=== PATIENT | female | born 1995 | race Two or more races ===

== ENCOUNTER 2017-09-07 04:41 | Emergency (ER) | payer MEDICAID, OTHER ==
[~2017-09-07] VITALS: Ht 165.1 cm; Wt 79.4 kg
[~2017-09-07 04:41] MED LIST: AMOXICILLIN500 MG ORAL; CLINDAMYCIN HC150 MG ORAL; IBUPROFEN600 MG ORAL; NKM; ZITHROMAX250 MG ORAL
[2017-09-07] MEDS ORDERED: AMOXICILLIN500 MG ORAL (04:56)
[2017-09-07] MEDS ORDERED: TYLENOL EXTRA500 MG ORAL (04:56)
[2017-09-07 05:00] VITALS: BP 122/72
--- NOTE | 2017-09-07 05:07 | Emergency Room Report ---
History of Present Illness General Chief Complaint: Sore Throat Source: Patient Present Illness HPI 22-year-old female presents ED complaining of throat pain x1 day. Patient states she has history of tonsillitis. Denies fevers or chills. Denies cough. Pain is throbbing, 8/10, nonradiating. Denies sick contacts or recent travel. No other aggravating relieving factors. Denies any others as if symptoms Allergies: Coded Allergies: No Known Allergies (Unverified , 04/14/13) Patient History Past Medical History: asthma Past Surgical History: none Pertinent Family History: none Social History: Denies: smoking, alcohol use, drug use Last Menstrual Period: 08/31/17 Now: No Immunizations: UTD Reviewed Nursing Documentation: PMH: Agreed, PSxH: Agreed Nursing Documentation-PMH Past Medical History: No History, Except For Hx Cardiac Problems: No - Tonsillitis Hx Asthma: Yes Review of Systems All Other Systems: negative except mentioned in HPI Physical Exam Vital Signs Date Time Temp Pulse Resp B/P (MAP) Pulse Ox O2 Delivery O2 Flow Rate FiO2 09/07/17 04:44 98 17 120/76 97 Room Air Sp02 EP Interpretation: reviewed, normal General Appearance: no apparent distress, alert, GCS 15, non-toxic Head: normocephalic, atraumatic Eyes: bilateral eye normal inspection, bilateral eye PERRL ENT: hearing grossly normal, no angioedema, normal voice, TMs + canals normal, pharyngeal erythema Neck: full range of motion, supple/symm/no masses Respiratory: chest non-tender, lungs clear, normal breath sounds, speaking full sentences Cardiovascular #1: regular rate, rhythm, no edema Cardiovascular #2: 2+ carotid (R), 2+ carotid (L), 2+ radial (R), 2+ radial (L) , 2+ dorsalis pedis (R), 2+ dorsalis pedis (L) Gastrointestinal: normal bowel sounds, non tender, soft, non-distended, no guarding, no rebound Rectal: deferred Genitourinary: normal inspection, no CVA tenderness Musculoskeletal: back normal, gait/station normal, normal range of motion, non- tender Neurologic: alert, oriented x3, responsive, motor strength/tone normal, sensory intact, speech normal Psychiatric: judgement/insight normal, memory normal, mood/affect normal, no suicidal/homicidal ideation Reflexes: 3+ bicep (R), 3+ bicep (L), 3+ tricep (R), 3+ tricep (L), 3+ knee (R) , 3+ knee (L) Skin: normal color, no rash, warm/dry, well hydrated Lymphatic: no adenopathy Medical Decision Making Diagnostic Impression: Primary Impression: Tonsillitis with exudate ER Course Hospital Course 22-year-old female presents to ED complaining of sore throat Differential diagnoses include: URI, pharyngitis, otitis media Clinical course Patient placed on stretcher. After initial history, physical exam reveals a female in no acute distress. Bilateral TM unremarkable. There is pharyngeal erythema w/o tonsillar exudates. No lymphadenopathy. Clinical findings consistent with tonsillitis Diagnosis - tonsillitis Stable and discharged home with prescriptions for Tylenol, amoxicillin. Instructed to followup with PMD. return to ED if symptoms recur or worsen Last Vital Signs Date Time Temp Pulse Resp B/P (MAP) Pulse Ox O2 Delivery O2 Flow Rate FiO2 09/07/17 04:44 98 17 120/76 97 Room Air Status: improved Disposition: HOME, SELF-CARE Condition: Stable Scripts Acetaminophen* (TYLENOL EXTRA STRENGTH*) 500 Mg Tablet 500 MG ORAL Q6H Y for Mild Pain/Temp > 100.5, #30 TAB 0 Refills Prov: LALI WEBB M.D. 09/07/17 Amoxicillin* (AMOXIL*) 500 Mg Capsule 500 MG ORAL THREE TIMES A DAY, #21 CAP Prov: LALI WEBB M.D. 09/07/17 Patient Instructions: Tonsillitis LALI WEBB M.D. Sep 07, 2017 05:07
== END 2017-09-07 05:00 | disposition home or self-care (01) ==
LOC: EMR 04:54
DX: J03.90 Acute tonsillitis, unspecified (principal); J45.909 Unspecified asthma, uncomplicated
CPT/HCPCS: 99283

== ENCOUNTER 2017-11-08 15:26 | Emergency (ER) | payer MEDICAID ==
[~2017-11-08] VITALS: Ht 165.1 cm; Wt 80.3 kg
[~2017-11-08 15:26] MED LIST changes: +TYLENOL EXTRA500 MG ORAL
--- NOTE | 2017-11-08 16:13 | Emergency Room Report ---
History of Present Illness General Chief Complaint: Diarrhea Present Illness HPI 22-year-old female presents to ER complaining of diarrhea and vomiting times x1 day. Patient reports vomiting only occurred once yesterday; denies blood in vomit; reports being able to eat since that time. Patient states she is not "worried about the vomiting". Patient reports last episode of diarrhea this morning; denies blood in stool. Patient reports diarrhea is watery; states she has been drinking lots of fluids past few days. Patient complains of burping intermittently with certain foods. Denies recent travel. Reports sick contacts. Patient denies hx of GERD. Patient reports currently being on menstrual period; states is normal for her. Patient complains of generalized abdominal discomfort. Patient denies fever, chest pain, SOB, FOLEY, dysuria, hematuria. Allergies: Coded Allergies: No Known Allergies (Unverified , 04/14/13) Patient History Past Medical History: see triage record Last Menstrual Period: 11/08/17 Now: No - on cycle now : 1 Para: 1 Immunizations: UTD Reviewed Nursing Documentation: PMH: Agreed, PSxH: Agreed Nursing Documentation-PMH Hx Cardiac Problems: No - Tonsillitis Hx Asthma: Yes Review of Systems All Other Systems: negative except mentioned in HPI Physical Exam Vital Signs Date Time Temp Pulse Resp B/P (MAP) Pulse Ox O2 Delivery O2 Flow Rate FiO2 11/08/17 15:44 97.7 110 20 113/79 97 Room Air Sp02 EP Interpretation: reviewed, normal General Appearance: no apparent distress, alert, GCS 15, non-toxic Head: normocephalic, atraumatic Eyes: bilateral eye normal inspection, bilateral eye PERRL ENT: hearing grossly normal, normal pharynx, no angioedema, normal voice, TMs + canals normal, uvula midline, moist mucus membranes, pharyngeal erythema Neck: full range of motion, supple/symm/no masses Respiratory: chest non-tender, lungs clear, normal breath sounds, speaking full sentences Cardiovascular #1: regular rate, rhythm, no edema Gastrointestinal: normal bowel sounds, non tender, soft, non-distended, no guarding, no rebound, other - negative TTP at McBurney's point, negative rovsing , negative Cortez sign Genitourinary: no CVA tenderness Musculoskeletal: back normal, digits/nails normal, gait/station normal, normal range of motion, non-tender Neurologic: alert, oriented x3, responsive, motor strength/tone normal, sensory intact, speech normal Psychiatric: mood/affect normal Skin: normal color, no rash, warm/dry, well hydrated Lymphatic: no adenopathy Medical Decision Making PA Attestation Dr. Garcia is my supervising Physician whom patient management has been discussed with. Diagnostic Impression: Primary Impression: Vomiting and diarrhea ER Course Pt. presents to the ED c/o vomiting and diarrhea. Ddx considered but are not limited to viral syndrome, gastritis, enteritis. Vital signs: are WNL, pt. is afebrile at discharge. ORDERS: none required at this time, the diagnosis is clinical ED INTERVENTIONS: None required at this time. Patient informed of likely viral cause of symptoms. DISCHARGE: Rx provided for Dicyclomine for diarrhea symptoms. Patient instructed on BRAT diet. Patient instructed to remain hydrated, drink plenty of fluids. Patient questions asked and answered. Patient states understanding and agreement to treatment plan. At this time pt. is stable for d/c to home. Patient is resting comfortably, laughing, in no acute distress, nontoxic appearing. Will provide printed patient care instructions, and any necessary prescriptions. Care plan and follow up instructions have been discussed with the patient prior to discharge. Patient instructed to followup with PCP in 3-5 days ER precautions given; patient instructed to return to ER for new or worsening of symptoms including but not limited to fever, intractable vomiting, severe abdominal pain, blood in stool. Last Vital Signs Date Time Temp Pulse Resp B/P (MAP) Pulse Ox O2 Delivery O2 Flow Rate FiO2 11/08/17 15:44 97.7 110 20 113/79 97 Room Air Disposition: HOME, SELF-CARE Condition: Stable Scripts Dicyclomine Hcl* (BENTYL*) 10 Mg Capsule 10 MG ORAL TWICE A DAY for 3 Days, #9 CAP Prov: Jimy Gonzales 11/08/17 Patient Instructions: Viral Gastroenteritis, Adult Additional Instructions: Followup with primary care provider in 3 -5 days. Take medications as directed. Patient questions asked and answered. ER precautions given, patient instructed to return to ER immediately for any new or worsening of symptoms. Jimy Gonzales Nov 08, 2017 16:13
[2017-11-08 16:16] VITALS: BP 115/77
[2017-11-08] MEDS ORDERED: BENTYL10 MG ORAL (16:26)
[2017-11-08 16:32] VITALS: BP 115/77
== END 2017-11-08 16:22 | disposition home or self-care (01) ==
LOC: EMR 16:00
DX: R19.7 Diarrhea, unspecified (principal); R11.10 Vomiting, unspecified; J45.909 Unspecified asthma, uncomplicated
CPT/HCPCS: 99283